=== PATIENT | female | born 1965 | race Caucasian/White ===

== ENCOUNTER → 2016-11-23 | Outpatient (CLI) | payer OTHER ==
[~2016-11-23] MED LIST: ALTACE PO; ASPIRIN PO; ASPIRIN81 M1 PO; BACTRIM DS TABL1 TAB PO; BUSPAR15 M2 DOB; CARAFATE PO; CETIRIZINE HCL5 MG PO; CIPRO PO; CYMBALTA PO; DIFLUCAN PO; DILAUDID; DILAUDID PAIN PUMP; DILAUDID PO; DOXYCYCLINE PO; DULOXETINE HCL60 MG PO; EFFEXOR PO; FISH OIL 1,0001 CAP PO; GEODON80 MG PO; HYDROCHLOROTHIA25 MG PO; HYDROCODON-ACE1 EAC5 PO; IBUPROFEN PO; KEFLEX PO; KLONOPIN PO; LASIX20 MG PO; LEVOTHROID25 MCG PO; LEVOTHYROXINE25 MCG PO; LORTAB 5/500 TA1 TA1 PO; MORPHINE INJ; MOTRIN600 M1 PO; NEURONTIN PO; NIASPAN PO; OYSTER SHELL C500 MG PO; PERCOCET5/325 PO; PHENERGAN PO; PHENERGAN25 MG PO; POTASSIUM99 M1; RAMIPRIL10 MG PO; REGLAN PO; SIMVASTATIN20 MG PO; SYNTHROID125 PO; VIBRAMYCIN100 M1 PO; VITAMIN D50000 UNIT PO; XANAFLEX PO; ZANAFLEX PO; ZYRTEC PO
--- NOTE | ~2016-11-23 | US128 ---
[id number] [facility] [address] [place], [place] [address] [id number] O MR#: [id number] #: [id number] NAME: KENYETTA RODRIGUEZ : 1965 SEX: F STUDY DATE/TIME: 11/23/2016 8:06 UNIT: [facility] ROOM: STUDY DESCRIPTION: US Thyroid Attending Physician: Jose Cintron Referring Physician: Jose Cintron Ordering Physician: Jose Cintron Primary Care Physician: Kelsey Mercer M.D. MEDICAL IMAGING REPORT This report is preliminary unless electronic signature is present EXAM Thyroid ultrasound COMPARISON CT soft tissue neck without IV contrast dated 06/06/2009. INDICATION 51-year-old female with hypothyroidism. FINDINGS There is normal size in the thyroid gland. Thyroid gland appears diffusely heterogeneous. Superior pole of the left lobe of the thyroid gland, there is a nearly anechoic nodule measuring 1.9 cm x 1.5 cm x 1.2 cm. A separate hypoechoic nodule in the superior left lobe of the thyroid gland measuring 1.3 x 1.1 cm x 1 cm, hypoechoic in nature. Finally, along the margin of the inferior pole of the left thyroid gland, the technologist measures a hypoechoic structure measuring 1.3 x 1.4 cm x 0.8 cm which may be external to the thyroid gland, possibly representing a parathyroid or alternatively this could represent a lymph node. This does not have appreciable internal color flow. IMPRESSION 1. Normal size of the thyroid gland, which has a heterogeneous appearance. Technologist measures 2 hypoechoic nodules which may have some cystic component within the left lobe of thyroid gland measuring up to 1.9 cm and 1.3 cm. Ultrasound-guided fine needle aspiration of the 1.9 cm left lobe thyroid nodule is recommended. Followup of the separate 1.3 cm nodule in one year is recommended- if the recommended biopsy returns benign results. 2. Technologist measures a separate hypoechoic structure which measures up to 1.3 cm and appears deep to the left thyroid gland. This may represent a lymph node or possibly the parathyroid gland or parathyroid adenoma. This is nonspecific. Consider CT soft tissue neck with IV contrast for further evaluation, as cervical adenopathy cannot be excluded. Correlation with parathyroid hormone may also be helpful. Dictated by... Jas Montano M.D. THIS IS AN ELECTRONICALLY VERIFIED REPORT Jas Montano M.D. at 11/27/2016 3:00 PM ULI/john TD: 11/26/2016 14:55 JOB #: [id number] MEDICAL IMAGING REPORT Page 1 of 1 COPY
--- NOTE | ~2016-11-23 | MY11 ---
[facility] A Service of [facility] RADIOLOGY TEXT RESULTS PATIENT: KENYETTA RODRIGUEZ LOCATION: [facility] : 67 UNIT #: [id number] AGE: [address]: TALHA DOMINGUEZ SEX: F ORDER DR: [id number] [facility] [address] [place], [place] [address] [id number] O MR#: [id number] Acc #: [id number] NAME: KENYETTA RODRIGUEZ : 1965 SEX: F STUDY DATE/TIME: 11/23/2016 7:39 UNIT: [facility] ROOM: STUDY DESCRIPTION: MY Mammogram Screening Dig Navarro Attending Physician: Jose Cintron Referring Physician: Jose Cintron Ordering Physician: Jose Cintron Primary Care Physician: Kelsey Mercer M.D. MEDICAL IMAGING REPORT This report is preliminary unless electronic signature is present EXAM Bilateral digital screening mammogram with CAD, 11/23/2016. INDICATION 51-year-old female for routine screening. No reported problems. No personal history of breast cancer. Family history positive in the patient's mother at age 45. No surgeries. TECHNIQUE CC and MLO views of the breast were obtained and reviewed with an FDA-approved CAD device. COMPARISONS 11/16/2015, 02/20/2010, 01/31/2010 FINDINGS The breast parenchyma is composed of scattered fibroglandular densities and the pattern is unchanged. There is no new dominant nodule, mass, or suspicious cluster of microcalcifications. Benign calcifications are present. IMPRESSION Benign screening mammogram. 1 year followup recommended. Patients over the age of 40 are entered into a reminder system with target due date for the next mammogram. A result letter will also be sent to the patient. BIRADS: 2 Benign finding. Dictated by... [facility] A Service of [facility] RADIOLOGY TEXT RESULTS PATIENT: KENYETTA RODRIGUEZ LOCATION: [facility] : 67 UNIT #: [id number] AGE: [address]: TALHA DOMINGUEZ SEX: F ORDER DR: Tavo Lozano M.D. THIS IS AN ELECTRONICALLY VERIFIED REPORT Tavo Lozano M.D. at 11/23/2016 5:19 PM CIERRA/mary TD: 11/23/2016 09:34 JOB #: [id number] MEDICAL IMAGING REPORT Page 1 of 1 COPY
== END | disposition home or self-care (01) ==
LOC: CWCC 07:27
DX: Z12.31 Encounter for screening mammogram for malignant neoplasm of breast (principal); Z80.3 Family history of malignant neoplasm of breast; E03.9 Hypothyroidism, unspecified; E04.1 Nontoxic single thyroid nodule
CPT/HCPCS: 76536; G0202

== ENCOUNTER → 2016-12-07 | Outpatient (CLI) | payer OTHER ==
--- NOTE | ~2016-12-07 | CT116 ---
[facility] A Service of [facility] RADIOLOGY TEXT RESULTS PATIENT: KENYETTA RODRIGUEZ LOCATION: [facility] : 67 UNIT #: [id number] AGE: [address]: Kelsey Mercer MD SEX: F ORDER DR: [id number] [facility] [address] [place], [place] [address] [id number] O MR#: [id number] Acc #: [id number] NAME: KENYETTA RODRIGUEZ. : 1965 SEX: F STUDY DATE/TIME: 12/07/2016 13:58 UNIT: [facility] ROOM: STUDY DESCRIPTION: CT Soft Tissue Neck Wo Cont Attending Physician: Kelsey Mercer M.D. Ordering Physician: Kelsey Mercer M.D. Primary Care Physician: Kelsey Mercer M.D. MEDICAL IMAGING REPORT This report is preliminary unless electronic signature is present EXAM Soft tissue neck CT without contrast DATE OF STUDY 12/07/2016 HISTORY Abnormal thyroid ultrasound and difficulty swallowing. TECHNIQUE This CT exam was performed with one or more of the following radiation dose reduction techniques: Automatic exposure control, adjustment of mA and/or kV according to patient size, and iterative reconstruction. FINDINGS There is mild symmetric thyromegaly. There is no other soft tissue mass. There is no suspicious adenopathy though a few minimally prominent cervical lymph nodes are seen. None are exceptional in size or appearance otherwise. The upper mediastinum is unremarkable. There is mild cervical degenerative change but no acute or exceptional appearing bony abnormality. Patient is edentulous and there is no acute abnormality in the paranasal sinuses. The mid to upper lungs are unremarkable. IMPRESSION Symmetrically nonspecifically prominent thyroid gland, otherwise no suspicious mass or adenopathy or other acute abnormality. There is no airway compromise. Otherwise unremarkable exam. Dictated by... Armando Flor M.D. [facility] A Service of [facility] RADIOLOGY TEXT RESULTS PATIENT: KENYETTA RODRIGUEZ [id number] : [birth year] UNIT #: [id number] AGE: [address]: Kelsey Mercer MD SEX: F ORDER DR: THIS IS AN ELECTRONICALLY VERIFIED REPORT Armando Flor M.D. at 12/12/2016 1:22 PM TEV/bd TD: 12/10/2016 12:00 JOB #: [id number] MEDICAL IMAGING REPORT Page 1 of 1 COPY
== END | disposition home or self-care (01) ==
LOC: CCAT 13:17
DX: E04.1 Nontoxic single thyroid nodule (principal); E03.9 Hypothyroidism, unspecified; R93.8 Abnormal findings on diagnostic imaging of other specified body structures
CPT/HCPCS: 70490